=== PATIENT | male | born 1965 | race African-American/Black ===

== ENCOUNTER 2016-12-12 04:07 | Emergency (ER) | payer MEDICAID ==
[~2016-12-12] VITALS: Ht 180.3 cm; Wt 175.0 kg
[2016-12-12] MEDS ORDERED: KETOROLAC 60MG/2ML VIAL IM ONE (07:00)
[2016-12-12 08:18] VITALS: BP 168/108
[2016-12-12] MEDS ORDERED: MORPHINE SULFATE 10 MG/ML CPJ IM ONE ×2 (11:00→13:15)
== END 2016-12-12 13:05 | disposition home or self-care (01) ==
LOC: ER 04:07
DX: M54.41 Lumbago with sciatica, right side (principal); I50.9 Heart failure, unspecified; E78.00 Pure hypercholesterolemia, unspecified; I11.9 Hypertensive heart disease without heart failure; R20.0 Anesthesia of skin
CPT/HCPCS: 72100; 96372; 99284; J1885; J2270; Z7610

== ENCOUNTER 2017-10-09 08:00 | Emergency (ER) | payer MEDICAID ==
[~2017-10-09] VITALS: Ht 180.3 cm; Wt 157.0 kg
[2017-10-09] MEDS ORDERED: POTA10TA15 PO (08:12)
[2017-10-09] MEDS ORDERED: METO25TA6 PO (08:12)
[2017-10-09] MEDS ORDERED: LISI-604 PO (08:12)
[2017-10-09] MEDS ORDERED: FURO20TA4 PO (08:12)
[2017-10-09] MEDS ORDERED: GENTAMICIN 0.3% OPTH OINT 3.5GM LEFTEYE ONE (10:30)
[2017-10-09 11:47] VITALS: BP 145/89
== END 2017-10-09 11:49 | disposition home or self-care (01) ==
LOC: ER 08:38
DX: H11.422 Conjunctival edema, left eye (principal); I11.0 Hypertensive heart disease with heart failure; I50.9 Heart failure, unspecified; E78.00 Pure hypercholesterolemia, unspecified
CPT/HCPCS: 99283; Z7610